=== PATIENT | male | born 1990 | race Caucasian/White ===

== ENCOUNTER 2024-01-24 10:30 | Outpatient (CLI) | payer BC, SELFPAY | END 2024-01-24 10:31 | disposition home or self-care (01) | LOC: NFLDREF 02-09 06:38 | PROVIDERS: PCP Family Medicine; Referring Provider Family Medicine; Visit Provider Family Medicine | DX: Z31.41 Encounter for fertility testing (principal) | CPT/HCPCS: 89322 ==

== ENCOUNTER 2025-02-07 15:50 | Outpatient (CLI) | payer BC, SELFPAY | END 2025-02-07 15:51 | disposition home or self-care (01) | LOC: NFLDREF 02-10 08:40 | PROVIDERS: PCP Family Medicine; Referring Provider Family Medicine; Visit Provider Family Medicine | DX: Z11.1 Encounter for screening for respiratory tuberculosis (principal); Z01.84 Encounter for antibody response examination | CPT/HCPCS: 86480; 86735; 86762; 86765; 86787 ==